=== PATIENT | female | born 2000 | race Caucasian/White ===

== ENCOUNTER 2024-04-09 21:17 | Emergency (ER) | payer OTHER ==
[2024-04-09 21:31] VITALS: BP 119/67; PULSE 84; RESP 18; TEMP 98.8; BMI 37.8
[2024-04-09] MEDS ORDERED: FLUORESCEIN NA 1 EA STRIP ONE (21:57)
[2024-04-09] MEDS ORDERED: TETRACAINE 0.5% OPHTH SOLN 2 ML BOTTLE ONE (21:57)
[2024-04-09] MEDS: FLUORESCEIN NA 1 EA STRIP OD ONE (21:58)
[2024-04-09] MEDS: TETRACAINE 0.5% OPHTH SOLN 2 ML BOTTLE OD ONE (21:58)
== END 2024-04-09 22:45 | disposition home or self-care (01) ==
LOC: JERFT 21:17
DX: H57.89 Other specified disorders of eye and adnexa (principal)
CPT/HCPCS: 99283-25